=== PATIENT | male | born 2000 | race Caucasian/White ===

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

== ENCOUNTER → 2018-12-27 | Outpatient (REF) | payer BC, OTHER | LOC: M LAB REF 13:48 | PROVIDERS: ATTEND Physician Assistant | DX: J02.9 Acute pharyngitis, unspecified (principal) ==

== ENCOUNTER 2020-07-05 18:18 | Emergency (ER) | payer BC ==
[~2020-07-05] VITALS: Ht 172.7 cm; Wt 65.0 kg
[2020-07-05] MEDS ORDERED: CHLORHEXIDINE GLUCONATE 0.12 % 15ML UDC (PERIDEX ORAL RINSE) SSP STA (18:46)
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
[2020-07-05] MEDS ORDERED: PERI12LIQ PO (20:07)
[2020-07-05 20:11] VITALS: BP 125/86
== END 2020-07-05 20:14 | disposition home or self-care (01) ==
LOC: M ED 18:18
DX: S01.512A Laceration without foreign body of oral cavity, initial encounter (principal); S00.33XA Contusion of nose, initial encounter; S00.81XA Abrasion of other part of head, initial encounter; R51.9 Headache, unspecified; V86.52XA Driver of snowmobile injured in nontraffic accident, initial encounter; Y92.9 Unspecified place or not applicable; Y93.9 Activity, unspecified; Y99.9 Unspecified external cause status